=== PATIENT | male | born 1955 ===

== ENCOUNTER 2022-05-20 18:11 | Emergency (ER) | payer MEDICAID, OTHER ==
[~2022-05-20] VITALS: Ht 160 cm; Wt 77.2 kg
[2022-05-20] MEDS ORDERED: cloNIDine HCL 0.1 MG TAB PO ONE (20:00)
[2022-05-20 21:34] VITALS: BP 156/56
== END 2022-05-20 21:43 | disposition home or self-care (01) ==
LOC: ER 18:11 → EDBD 18:11 → ER 21:43
DX: I16.0 Hypertensive urgency (principal); E11.9 Type 2 diabetes mellitus without complications; E78.5 Hyperlipidemia, unspecified; K21.9 Gastro-esophageal reflux disease without esophagitis; F17.210 Nicotine dependence, cigarettes, uncomplicated
CPT/HCPCS: 93005